=== PATIENT | female | born 1980 | race Caucasian/White ===

== ENCOUNTER 2017-07-30 10:10 | Day surgery (SDC) | payer OTHER ==
[~2017-07-30 10:10] MED LIST: ATABEX DHA 200200 MG PO; FOLIC ACID1 MG PO; PROBIOTIC1 EAC1 PO
== END 2017-07-30 16:10 | disposition home or self-care (01) ==
LOC: CIR.AMB 10:10
DX: O02.1 Missed abortion (principal); Z3A.01 Less than 8 weeks gestation of pregnancy

== ENCOUNTER 2018-08-11 10:56 | Outpatient (CLI) | payer OTHER | END 2018-08-11 11:03 | disposition home or self-care (01) | LOC: SONOGRAMA 10:56 | DX: N83.202 Unspecified ovarian cyst, left side (principal); R10.10 Upper abdominal pain, unspecified ==

== ENCOUNTER 2019-08-28 15:19 | Inpatient (IN) | payer OTHER ==
[~2019-08-28] VITALS: Ht 172.7 cm; Wt 3.6 kg
== END 2019-09-24 13:06 | disposition home or self-care (01) | DRG 788 ==
LOC: LDR 09-20 05:51 → SURG-SUITE 09-21 15:28 → LDR 09-22 13:45 → SURG-SUITE 09-24 13:06
PROVIDERS: Obstetrics & Gynecology; ADMIT Obstetrics & Gynecology; ATTEND Obstetrics & Gynecology
PROC: 4A1HXCZ Monitoring of Products of Conception, Cardiac Rate, External Approach (ICD-10-PCS; 2019-09-20)
PROC: 3E033VJ Introduction of Other Hormone into Peripheral Vein, Percutaneous Approach (ICD-10-PCS; 2019-09-21)
PROC: 10D00Z1 Extraction of Products of Conception, Low, Open Approach (ICD-10-PCS; principal; 2019-09-21 14:00)
DX: O82 Encounter for cesarean delivery without indication (principal); O61.0 Failed medical induction of labor; Z3A.37 37 weeks gestation of pregnancy; Z37.0 Single live birth; Z20.828 Contact with and (suspected) exposure to other viral communicable diseases

== ENCOUNTER 2019-09-13 11:31 | Outpatient (CLI) | payer OTHER | END 2019-09-13 12:36 | disposition home or self-care (01) | LOC: NST 11:31 | PROVIDERS: ATTEND Obstetrics & Gynecology Maternal & Fetal Medicine | DX: Z34.83 Encounter for supervision of other normal pregnancy, third trimester (principal) ==

== ENCOUNTER 2019-09-18 11:04 | Outpatient (CLI) | payer OTHER | END 2019-09-18 12:09 | disposition home or self-care (01) | LOC: NST 11:04 | PROVIDERS: ATTEND Obstetrics & Gynecology | DX: Z34.83 Encounter for supervision of other normal pregnancy, third trimester (principal) ==

== ENCOUNTER → 2021-02-26 | Outpatient (CLI) | payer OTHER | END | disposition home or self-care (01) | LOC: RAD 11:43 | DX: M25.561 Pain in right knee (principal); M22.2X1 Patellofemoral disorders, right knee ==